=== PATIENT | female | born 1990 | race Caucasian/White ===

== ENCOUNTER 2019-03-22 11:32 | Emergency (ER) | payer MEDICAID, OTHER ==
[~2019-03-22] VITALS: Ht 165.1 cm; Wt 66.7 kg
[2019-03-22] MEDS ORDERED: TRAZ150T75 PO (11:44)
--- NOTE | 2019-03-22 11:52 | NUR ---
PT IS IN ROOM #2A. DR WEINBERG EVALUATED THE PT.
[2019-03-22] MEDS: LORAZEPAM 0.5 MG TABLET PO ONE (12:16)
[2019-03-22] MEDS ORDERED: LORAZEPAM 0.5 MG TABLET ONE (12:17)
--- NOTE | 2019-03-22 12:17 | NUR ---
PT WAS D/C'd TO HOME. D/C INSTRUCTIONS GIVEN TO THE PT.
[2019-03-22 12:18] VITALS: BP 131/71
== END 2019-03-22 12:18 | disposition home or self-care (01) ==
LOC: ER 11:32
DX: F41.9 Anxiety disorder, unspecified (principal); F11.23 Opioid dependence with withdrawal; F32.9 Major depressive disorder, single episode, unspecified; Z79.899 Other long term (current) drug therapy
CPT/HCPCS: A4663